=== PATIENT | female | born 1990 | race Caucasian/White ===

== ENCOUNTER → 2022-10-26 | Outpatient (CLI) | payer OTHER ==
[~2022-10-26] VITALS: Ht 160 cm; Wt 81.0 kg
[~2022-10-26] MED LIST: METHOTREXATE 50 MG/2 ML PF IJ ONE; METHOTREXATE 50 MG/2 ML PF IV ONE
[2022-10-26 10:19] VITALS: BP 123/78
== END ==
LOC: SDC 10:01
PROVIDERS: ATTEND Obstetrics & Gynecology
DX: O00.90 Unspecified ectopic pregnancy without intrauterine pregnancy (principal); Z3A.00 Weeks of gestation of pregnancy not specified
CPT/HCPCS: 96372

== ENCOUNTER → 2022-10-29 | Outpatient (CLI) | payer OTHER ==
--- NOTE | 2022-10-29 15:08 | Diagnostic Imaging Report ---
PROCEDURE: Pelvic comp/transvaginal sonogram. TECHNIQUE: Complete transabdominal and transvaginal pelvic ultrasound was performed. In addition, limited pelvic Doppler was performed. INDICATION: History of three ectopic pregnancies with recent ectopic several days ago, given methotrexate. FINDINGS: Uterus is retroverted measuring 8.6 x 3.7 x 4.0 cm. Endometrium is 10 mm in thickness. There is some fluid in the endometrial canal. No myometrial mass is identified. Right ovary measures 4.5 x 4.2 x 3.4 cm and left ovary measures 2.3 x 1.4 x 1.3 cm. There is a complex cystic mass in the right adnexa measuring 3.3 cm. This does contain some internal septa and internal debris. No definite pole is identified. There is blood flow to the ovaries. There is some small amount of free fluid present. IMPRESSION: Complex cystic mass in the right adnexa. This could potentially represent patient's known recent ectopic . No pole is seen at this time, however. No intrauterine gestational sac is identified. There is some trace fluid within the endometrial canal. Dictated by: Dictated on workstation # [id number]
== END ==
LOC: RAD 12:49
PROVIDERS: ATTEND Obstetrics & Gynecology
DX: N83.8 Other noninflammatory disorders of ovary, fallopian tube and broad ligament (principal)
CPT/HCPCS: 76830; 76856

== ENCOUNTER → 2022-11-30 | Outpatient (CLI) | payer OTHER ==
--- NOTE | 2022-11-30 13:15 | Diagnostic Imaging Report ---
PROCEDURE: Pelvic comp/transvaginal sonogram. TECHNIQUE: Complete transabdominal and transvaginal pelvic ultrasound was performed. In addition, limited pelvic Doppler was performed. INDICATION: Recent ectopic . Study is performed for follow-up. COMPARISON: Correlation is made with prior ultrasound from 10/29/2022. FINDINGS: Uterus is retroverted measuring 7.2 x 2.2 x 4.6 cm. Endometrium is 6 mm in thickness. No myometrial mass is detected. There are cervical nabothian cysts. The right ovary measures 2.8 x 1.9 x 2.1 cm, and the left ovary measures 1.8 x 1.3 x 1.8 cm. The ovaries contain small follicles. Previously noted complex cystic mass in the right adnexa is no longer visualized. IMPRESSION: Resolution of complex cystic mass in the right adnexa when compared with examination from one month earlier. No new abnormality is detected. Dictated by: Dictated on workstation # [id number]
== END ==
LOC: RAD 12:00
PROVIDERS: ATTEND Obstetrics & Gynecology
DX: O00.90 Unspecified ectopic pregnancy without intrauterine pregnancy (principal); Z3A.00 Weeks of gestation of pregnancy not specified
CPT/HCPCS: 76830; 76856